=== PATIENT | female | born 1980 | race Caucasian/White ===

== ENCOUNTER 2019-05-09 09:43 | Outpatient (CLI) | payer OTHER ==
--- NOTE | 2019-05-09 11:25 | ULT ---
Pelvic ultrasound: 05/09/2019 HISTORY: Pain, palpable abnormality within the pelvis. TECHNIQUE: Multiplanar grayscale sonographic imaging of the pelvis obtained with transabdominal and e ndovaginal imaging. The ovaries are assessed with color flow and spectral analysis FINDINGS: The uterus is heterogeneous and lobulated, measuring 9.5 x 8.1 x 9.1 cm. The uterus appears to contain numerous fibroids, which includes a right fundal fibroid measuring 3.6 x 3.2 x 3.8 cm, a right mid body fibroid measuring 3.5 x 4.1 x 4.0 cm, and a left sided uterine fibroid measuring 3.1 x 2.6 x 3.2 cm. Multiple additional smaller uterine fibroids are noted. The endometrium is estimated at 1 cm in thickness but is not well visualized/measured secondary to pr esence of a intrauterine device as well as the presence of numerous uterine fibroids distorting the normal anatomy. Trace free fluid noted in the pelvic cul-de-sac. Both ovaries demonstrate normal blood flow. Right ovary measures 3.7 x 2.0 x 1.8 cm and left ovary me asures 3.4 x 2.7 x 2.5 cm. Dominant follicle within left ovary measures up to 1.6 cm. IMPRESSION: Numerous uterine fibroids as detailed above.
== END 2019-05-09 09:44 | disposition home or self-care (01) ==
LOC: BICULT 09:43
PROVIDERS: ATTEND Internal Medicine
DX: D25.9 Leiomyoma of uterus, unspecified (principal)
CPT/HCPCS: 76856

== ENCOUNTER 2023-01-08 13:36 | Outpatient (CLI) | payer OTHER | END 2023-01-08 13:37 | disposition home or self-care (01) | LOC: BICMAMMO 13:36 | PROVIDERS: ATTEND Internal Medicine | DX: N63.20 Unspecified lump in the left breast, unspecified quadrant (principal); N60.02 Solitary cyst of left breast | CPT/HCPCS: 77066; G0279 ==

== ENCOUNTER 2023-03-10 17:00 | Outpatient (CLI) | payer OTHER | END 2023-03-10 17:01 | disposition home or self-care (01) | LOC: SLEEPLAB 17:00 | PROVIDERS: ATTEND Internal Medicine | DX: G47.30 Sleep apnea, unspecified (principal); G47.10 Hypersomnia, unspecified | CPT/HCPCS: 95800 ==

== ENCOUNTER 2023-04-14 17:00 | Outpatient (CLI) | payer OTHER | END 2023-04-14 17:01 | disposition home or self-care (01) | LOC: SLEEPLAB 17:00 | PROVIDERS: ATTEND Internal Medicine | DX: G47.30 Sleep apnea, unspecified (principal); G47.10 Hypersomnia, unspecified; G47.00 Insomnia, unspecified; G43.909 Migraine, unspecified, not intractable, without status migrainosus; J30.9 Allergic rhinitis, unspecified; R42 Dizziness and giddiness; I10 Essential (primary) hypertension; R06.83 Snoring | CPT/HCPCS: 95810 ==